=== PATIENT | male | born 1965 | race Caucasian/White ===

== ENCOUNTER 2021-04-18 22:20 | Emergency (ER) | payer MEDICAID ==
[~2021-04-18] VITALS: Ht 170.2 cm; Wt 78.9 kg
[2021-04-18 22:29] VITALS: BP_SYST 128
[2021-04-18] MEDS ORDERED: PRED20TA PO (23:26)
[2021-04-19 03:41] VITALS: BP_SYST 128
== END 2021-04-18 23:30 | disposition home or self-care (01) ==
LOC: SED 22:20
DX: T78.40XA Allergy, unspecified, initial encounter (principal); E11.9 Type 2 diabetes mellitus without complications; R21 Rash and other nonspecific skin eruption; I10 Essential (primary) hypertension; X58.XXXA Exposure to other specified factors, initial encounter; Y93.9 Activity, unspecified; Y92.9 Unspecified place or not applicable; Y99.9 Unspecified external cause status; Z88.8 Allergy status to other drugs, medicaments and biological substances
CPT/HCPCS: 99282; 99283